=== PATIENT | male | born 1985 | race African-American/Black ===

== ENCOUNTER 2020-12-07 09:17 | Emergency (ER) | payer MEDICAID ==
--- NOTE | 2020-12-07 09:35 | ED Physician Documentation ---
PD HPI MALE - Stated complaint Stated Complaint: MALE - Chief complaint Chief Complaint: UTI - History obtained from History obtained from: Patient - History of Present Illness Timing - onset: How many weeks ago (his girlfriend seen in ER recently and tested positive for vaginal STI "begins with T". I offered Trichomonas, GC, Chlamydia as options and he said it was Trich. He has not had any symptoms. Here for testing/treatment due to exposure.) Review of Systems Constitutional: denies: Fever, Chills, Myalgias : denies: Dysuria, Discharge Skin: denies: Rash, Lesions PD PAST MEDICAL HISTORY - Past Medical History Cardiovascular: None Respiratory: None - Present Medications Home Medications: Ambulatory Orders Medication Instructions Recorded Confirmed metroNIDAZOLE [Flagyl] 500 mg PO BID 7 Days #14 tablet 12/07/20 - Allergies Allergies/Adverse Reactions: Allergies Allergy/AdvReac Type Severity Reaction Status Date / Time No Known Drug Allergies Allergy Verified 12/07/20 09:32 PD ED PE NORMAL - Vitals Vital signs reviewed: Yes - General General: Alert and oriented X 3, No acute distress, Well developed/nourished - Male Male : Deferred - Derm Derm: Normal color, Warm and dry Results - Vitals Vitals: Vital Signs - 24 hr 12/07/20 12/07/20 09:29 10:40 Temperature 36.3 C L Heart Rate 70 70 Respiratory 16 15 Rate Blood Pressure 169/105 H 158/98 H O2 Saturation 98 97 Oxygen O2 Source Room air - Labs Labs: Laboratory Tests 12/07/20 09:33 Chlam trachomat DNA PCR POSITIVE A N.gonorrhoeae DNA (PCR) NEGATIVE T. vaginalis (PCR) TNP PD MEDICAL DECISION MAKING - ED course Complexity details: reviewed results (STI results pending.), considered differential (exposure to Trichomonas in current sexual partner. Will treat empirically. No symptoms. Discussed 2g single dose versus 500 BID, which has slightly higher cure rate, and he opted for the week treatment. ), d/w patient ED course: review of the Urine test showing CHlamydia. Will have nursing phone him and Rx Zithromax 1 g PO single dose. Departure - Departure Disposition: 01 Home, Self Care Clinical Impression: Trichomonas contact Condition: Stable Record reviewed to determine appropriate education?: Yes Prescriptions: metroNIDAZOLE [Flagyl] 500 mg PO BID 7 Days #14 tablet Comments: We will treat you with metronidazole twice daily for a week for the exposure to trichomonas. This should be adequate to treat any early infections. Recheck if any symptoms develop in the near future. Discharge Date/Time: 12/07/20 10:40
[2020-12-07] MEDS ORDERED: metroNIDAZOLE 250 MG TABLET PO STA (10:03)
[2020-12-07 11:58] VITALS: BP 158/98
[2020-12-07 21:14] LABS: NEISSERIA GONORRHOEAE DNA NEGATIVE (NEGATIVE)
[2020-12-07 21:29] LABS: CHLAMYDIA TRACHOMATIS DNA POSITIVE (NEGATIVE)
== END 2020-12-07 10:40 | disposition home or self-care (01) ==
LOC: ED 09:17
DX: A74.9 Chlamydial infection, unspecified (principal)
CPT/HCPCS: 87491; 87591; 99283; A9270; 87661